=== PATIENT | female | born 2000 | race Hispanic/Latino ===

== ENCOUNTER 2024-02-19 21:09 | Emergency (ER) | payer MEDICAID, OTHER ==
[~2024-02-19] VITALS: Ht 165.1 cm; Wt 116.6 kg
[2024-02-19 22:24] VITALS: BP 116/76; PULSE 92; RESP 17
== END 2024-02-19 23:03 | disposition left against medical advice (07) ==
LOC: EDH 21:09
DX: M79.671 Pain in right foot (principal); Z53.21 Procedure and treatment not carried out due to patient leaving prior to being seen by health care provider
CPT/HCPCS: 99281